=== PATIENT | female | born 1970 | race Caucasian/White ===

== ENCOUNTER → 2016-10-08 | Outpatient (CLI) | payer BC ==
--- NOTE | 2016-10-08 12:54 | REP ---
MRI brain without contrast: History: Mild cognitive impairment. . Comparison study: No comparison brain imaging. Technique: Axial and sagittal imaging planes are utilized for T1 and T2-weighted scans. Sequences include spin-echo, fast spin echo, FLAIR, and diffusion weighted sequences. MRI findings: No bony calvarial lesion is seen. Craniocervical junction and upper cervical cord are normal in appearance. There is no MR evidence of significant paranasal sinus disease. No intraorbital abnormality is seen. The lateral, third, and fourth ventricles are normal in size and position. Alfaro-white differentiation pattern is intact above and below the tentorium. There is no evidence of intracranial hemorrhage. No mass, infarction, extra-axial fluid collection or midline shift is seen. On T2-weighted scans, there are scattered foci of subcortical and periventricular T2 hyperintensity in the frontal lobes, parietal lobes, and occipital lobes bilaterally. These are nonspecific and consistent with atherosclerotic disease, demyelinating lesions, or can be associated with migraine headache. The largest of these is a periventricular white matter lesion in the left frontal lobe where there is some associated low T1 signal intensity. Impression: Multiple periventricular and subcortical T2 hyperintense foci. Nonspecific. Cannot exclude demyelinating disease. Otherwise normal noncontrast brain MRI study. Signed by Bobby Spencer MD 10/08/2016 12:45 P
== END | disposition home or self-care (01) ==
LOC: M RAD 07:30
PROVIDERS: ATTEND Family Medicine
DX: G31.84 Mild cognitive impairment of uncertain or unknown etiology (principal); R90.89 Other abnormal findings on diagnostic imaging of central nervous system

== ENCOUNTER → 2016-10-17 | Outpatient (CLI) | payer BC ==
--- NOTE | 2016-10-17 21:41 | REP ---
Clinical: History of atherosclerotic disease . Technique: Alfaro scale and color Doppler evaluation using linear high frequency transducer Findings: Two-dimensional alfaro scale and color images demonstrate essentially normal arterial lumen with laminar flow and no appreciable narrowing. Small focus of calcified plaque material noted in the bilateral carotid bulbs. Color Doppler interrogation demonstrates normal arterial wave patterns and velocities with no significant spectral broadening. Normal flow direction is appreciated in the bilateral vertebral arteries. RIGHT (cm/s) LEFT (cm/s) ICA peak systolic velocity 86.4 94.3 ICA diastolic velocity 34.5 39.8 ECA peak systolic velocity 104.2 99.6 CCA peak systolic velocity 95.8 108.5 ICA/CCA ratio 0.90 0.87 Impression: No hemodynamically significant areas of narrowing or stenosis appreciated. Based on set standards narrowing falls within the essentially normal range. Signed by Eleazar Jefferson MD 10/17/2016 09:32 P
== END | disposition home or self-care (01) ==
LOC: M RAD 16:22
PROVIDERS: ATTEND Family Medicine
DX: I77.9 Disorder of arteries and arterioles, unspecified (principal)

== ENCOUNTER → 2016-12-06 | Outpatient (CLI) | payer BC ==
--- NOTE | 2016-12-07 09:29 | REPMRS ---
Patient History The patient states she has not had a clinical breast exam in over a year. No known family history of cancer. Reductions of both breasts, 2004. Digital Mammo Screening Bilat: December 06, 2016 - Exam #: [id number] Bilateral CC and MLO view(s) were taken. Technologist: Alysa Delgado, Technologist Prior study comparison: 2009, digital bilateral screening mammo, performed at [facility]. FINDINGS: There are scattered fibroglandular densities. There has been no change in the appearance of the mammogram from the prior studies. There is a mild amount of scattered fibroglandular density which is fairly symmetric. There is no interval development of dominant mass, architectural distortion, or clustered microcalcification suggestive of malignancy. ASSESSMENT: BI-RADS/ACR category 1 mammogram. Negative. Recommendation Routine screening mammogram in 1 year (for women over age 40). This mammogram was interpreted with the aid of an FDA-approved computer-aided dectection system. Electronically Signed By: Eduardo Spencer MD 12/07/16 0906
== END ==
LOC: M RAD 15:45
PROVIDERS: ATTEND Family Medicine
DX: Z12.31 Encounter for screening mammogram for malignant neoplasm of breast (principal)

== ENCOUNTER → 2017-05-02 | Outpatient (REF) | payer BC | LOC: M SFHCPLAZ 10:22 | PROVIDERS: ATTEND Family Medicine | DX: Z53.8 Procedure and treatment not carried out for other reasons (principal); E78.5 Hyperlipidemia, unspecified; G31.84 Mild cognitive impairment of uncertain or unknown etiology; E55.9 Vitamin D deficiency, unspecified ==

== ENCOUNTER → 2017-05-03 | Outpatient (REF) | payer BC ==
[2017-05-03 13:48] LABS: VITAMIN B12 LEVEL 351 PG/ML (247-911)
[2017-05-03 14:17] LABS: CHOLESTEROL LEVEL 128 MG/DL (<200); FREE T4 1.03 NG/DL (0.76-1.46); TRIGLYCERIDES LEVEL 161 MG/DL (<150)
== END ==
LOC: M SFHCPLAZ 10:13
PROVIDERS: ATTEND Family Medicine
DX: E78.5 Hyperlipidemia, unspecified (principal); G31.84 Mild cognitive impairment of uncertain or unknown etiology; E55.9 Vitamin D deficiency, unspecified

== ENCOUNTER → 2018-03-03 | Outpatient (CLI) | payer BC | LOC: M WUC 12:26 | DX: M25.531 Pain in right wrist (principal) | CPT/HCPCS: 73110 ==

== ENCOUNTER → 2018-04-17 | Outpatient (CLI) | payer BC ==
[2018-04-17 15:54] LABS: ALBUMIN 3.7 GM/DL (3.2-5.2); ALBUMIN/GLOBULIN RATIO 1.28 (1.00-1.93); ALKALINE PHOSPHATASE 62 U/L (45-117); ALT/SGPT 25 U/L (12-78); ANION GAP 8 MEQ/L (8-16); AST/SGOT 15 U/L (7-37); BILIRUBIN,TOTAL 0.8 MG/DL (0.2-1.0); BLOOD UREA NITROGEN 11 MG/DL (7-18); CALCIUM LEVEL 8.4 MG/DL (8.5-10.1); CARBON DIOXIDE LEVEL 27 MEQ/L (21-32); CHLORIDE LEVEL 106 MEQ/L (98-107); CREATININE FOR GFR 0.95 MG/DL (0.55-1.30); FREE T4 0.85 NG/DL (0.76-1.46); GLOMERULAR FILTRATION RATE > 60.0 (>58); GLUCOSE, FASTING 80 MG/DL (70-100); POTASSIUM SERUM 4.1 MEQ/L (3.5-5.1); SODIUM LEVEL 141 MEQ/L (136-145); TOTAL PROTEIN 6.6 GM/DL (6.4-8.2)
[2018-04-17 15:57] LABS: VITAMIN B12 LEVEL 339 PG/ML (247-911)
== END ==
LOC: M LAB 14:33
DX: E55.9 Vitamin D deficiency, unspecified (principal); G31.84 Mild cognitive impairment of uncertain or unknown etiology; E03.9 Hypothyroidism, unspecified
CPT/HCPCS: 84443

== ENCOUNTER → 2018-05-16 | Outpatient (CLI) | payer BC | LOC: M LAB 07:11 | DX: G31.84 Mild cognitive impairment of uncertain or unknown etiology (principal) | CPT/HCPCS: 36415 ==

== ENCOUNTER → 2019-04-10 | Outpatient (CLI) | payer BC ==
[2019-04-10 11:59] LABS: BASO % 0.7 % (0.0-1.0); EOS # 0.2 10^3/uL (0.0-0.50); EOS % 3.1 % (0.0-3.0); HEMATOCRIT 41.1 % (36.0-47.0); HEMOGLOBIN 13.4 g/dl (12.0-15.5); LYMPH # 2.1 10^3/uL (1.5-4.5); LYMPH % 33.6 % (24.0-44.0); MEAN CORPUSCULAR HEMOGLOBIN 29.1 pg (27.0-33.0); MEAN CORPUSCULAR HGB CONC 32.6 g/dl (32.0-36.5); MEAN CORPUSCULAR VOLUME 89.3 fl (80.0-96.0); MONO # 0.6 10^3/uL (0.0-0.8); MONO % 9.4 % (0.0-5.0); NEUTROPHILS # 3.3 10^3/uL (1.8-7.7); NEUTROPHILS % 52.9 % (36.0-66.0); PLATELET COUNT, AUTOMATED 192 10^3/uL (150-450); WHITE BLOOD COUNT 6.1 10^3/uL (4.0-10.0)
[2019-04-10 12:18] LABS: HEMATOCRIT 41.1 % (36.0-47.0)
[2019-04-10 12:38] LABS: ALBUMIN 3.7 GM/DL (3.2-5.2); ALT/SGPT 18 U/L (12-78); BILIRUBIN,TOTAL 0.8 MG/DL (0.2-1.0); BLOOD UREA NITROGEN 12 MG/DL (7-18); CALCIUM LEVEL 8.2 MG/DL (8.5-10.1); CARBON DIOXIDE LEVEL 26 MEQ/L (21-32); CHLORIDE LEVEL 107 MEQ/L (98-107); CHOLESTEROL LEVEL 183 MG/DL (<200); CHOLESTEROL RISK RATIO 3.267 (<5); CREATININE FOR GFR 0.98 MG/DL (0.55-1.30); FREE T4 0.73 NG/DL (0.76-1.46); GLOMERULAR FILTRATION RATE > 60.0 (>58); GLUCOSE, FASTING 85 MG/DL (70-100); HDL CHOLESTEROL 56 MG/DL (>40); LDL CHOLESTEROL 104 MG/DL (<100); NON-HDL-C 127 MG/DL; POTASSIUM SERUM 4.2 MEQ/L (3.5-5.1); SODIUM LEVEL 139 MEQ/L (136-145); TOTAL PROTEIN 6.7 GM/DL (6.4-8.2); TRIGLYCERIDES LEVEL 114 MG/DL (<150)
[2019-04-10 12:47] LABS: VITAMIN B12 LEVEL 463 PG/ML (247-911)
== END ==
LOC: M LAB 10:59
PROVIDERS: ATTEND Family Medicine
DX: E78.5 Hyperlipidemia, unspecified (principal); K21.9 Gastro-esophageal reflux disease without esophagitis; E53.8 Deficiency of other specified B group vitamins; I10 Essential (primary) hypertension

== ENCOUNTER → 2019-04-10 | Outpatient (CLI) | payer BC | LOC: M LAB 11:05 | PROVIDERS: ATTEND Physician Assistant Medical | DX: E03.9 Hypothyroidism, unspecified (principal); E53.8 Deficiency of other specified B group vitamins ==

== ENCOUNTER → 2020-03-19 | Outpatient (REF) | payer BC ==
[2020-03-19 16:31] LABS: BASO # 0.1 10^3/uL (0.0-0.2); BASO % 0.7 % (0.0-1.0); EOS # 0.2 10^3/uL (0.0-0.5); EOS % 2.7 % (0.0-3.0); HEMATOCRIT 42.5 % (36.0-47.0); HEMOGLOBIN 13.5 g/dl (12.0-15.5); LYMPH # 3.1 10^3/uL (1.5-5.0); LYMPH % 43.1 % (24.0-44.0); MEAN CORPUSCULAR HEMOGLOBIN 27.6 pg (27.0-33.0); MEAN CORPUSCULAR HGB CONC 31.8 g/dl (32.0-36.5); MEAN CORPUSCULAR VOLUME 86.9 fl (80.0-96.0); MONO # 0.5 10^3/uL (0.0-0.8); MONO % 7.3 % (0.0-5.0); NEUTROPHILS # 3.3 10^3/uL (1.5-8.5); NEUTROPHILS % 46.1 % (36.0-66.0); PLATELET COUNT, AUTOMATED 248 10^3/uL (150-450); RED BLOOD COUNT 4.89 10^6/uL (4.00-5.40); WHITE BLOOD COUNT 7.1 10^3/uL (4.0-10.0)
[2020-03-19 17:06] LABS: ALBUMIN 3.8 GM/DL (3.2-5.2); ALT/SGPT 17 U/L (12-78); BILIRUBIN,TOTAL 0.7 MG/DL (0.2-1.0); BLOOD UREA NITROGEN 9 MG/DL (7-18); CALCIUM LEVEL 8.7 MG/DL (8.5-10.1); CARBON DIOXIDE LEVEL 28 MEQ/L (21-32); CHLORIDE LEVEL 105 MEQ/L (98-107); CREATININE FOR GFR 0.98 MG/DL (0.55-1.30); FREE T4 0.98 NG/DL (0.76-1.46); GLOMERULAR FILTRATION RATE > 60.0 (>51); GLUCOSE, FASTING 76 MG/DL (70-100); SODIUM LEVEL 139 MEQ/L (136-145); TOTAL PROTEIN 6.6 GM/DL (6.4-8.2)
[2020-03-20 19:11] LABS: PTH INTACT 19.8 PG/ML (18.5-88.0); VITAMIN B12 LEVEL 269 PG/ML (247-911)
[2020-03-20 19:26] LABS: TOTAL 25(OH) VITAMIN D 29.4 NG/ML (30.0-100.0)
== END ==
LOC: M SFHCPLAZ 12:52
PROVIDERS: ATTEND Physician Assistant Medical
DX: K21.9 Gastro-esophageal reflux disease without esophagitis (principal); E03.9 Hypothyroidism, unspecified; E78.5 Hyperlipidemia, unspecified; E55.9 Vitamin D deficiency, unspecified; E53.8 Deficiency of other specified B group vitamins

== ENCOUNTER 2021-03-07 01:21 | Emergency (ER) | payer BC ==
[~2021-03-07] VITALS: Ht 170.2 cm; Wt 77.5 kg
[2021-03-07 01:21] VITALS: BP 112/71
[2021-03-07] MEDS ORDERED: ROSU20TA5 PO (01:32)
[2021-03-07] MEDS ORDERED: ONDA-83 PO (01:32)
[2021-03-07] MEDS ORDERED: BUPR150T5 PO (01:32)
[2021-03-07] MEDS ORDERED: LISI10TA22 PO (01:32)
[2021-03-07] MEDS ORDERED: NABU-71 PO (01:32)
[2021-03-07] MEDS ORDERED: CEPH500C PO (02:09)
[2021-03-07] MEDS ORDERED: CEPHALEXIN 500 MG CAP PO ONE (02:10)
== END 2021-03-07 02:29 | disposition home or self-care (01) ==
LOC: M ED 01:21
DX: L03.116 Cellulitis of left lower limb (principal); E78.5 Hyperlipidemia, unspecified; Z98.86 Personal history of breast implant removal

== ENCOUNTER → 2021-03-19 | Outpatient (REF) | payer BC ==
[~2021-03-19] MED LIST: BUPR150T5 PO; CEPH500C PO; LISI10TA22 PO; NABU-71 PO; ONDA-83 PO; ROSU20TA5 PO
[2021-03-19 18:55] LABS: BASO % 0.6 % (0.0-1.0); EOS # 0.1 10^3/uL (0.0-0.5); HEMATOCRIT 41.3 % (36.0-47.0); HEMATOCRIT 41.6 % (36.0-47.0); HEMOGLOBIN 13.3 g/dl (12.0-15.5); MEAN CORPUSCULAR HEMOGLOBIN 28.5 pg (27.0-33.0); MEAN CORPUSCULAR VOLUME 89.1 fl (80.0-96.0); MONO # 0.4 10^3/uL (0.0-0.8); MONO % 6.6 % (2.0-8.0); NEUTROPHILS # 3.9 10^3/uL (1.5-8.5); NEUTROPHILS % 59.5 % (36.0-66.0); PLATELET COUNT, AUTOMATED 232 10^3/uL (150-450); RED BLOOD COUNT 4.67 10^6/uL (4.00-5.40); WHITE BLOOD COUNT 6.5 10^3/uL (4.0-10.0)
[2021-03-19 19:07] LABS: ALBUMIN 3.9 GM/DL (3.2-5.2); ALT/SGPT 24 U/L (12-78); BILIRUBIN,TOTAL 0.7 MG/DL (0.2-1.0); BLOOD UREA NITROGEN 15 MG/DL (7-18); CALCIUM LEVEL 8.7 MG/DL (8.5-10.1); CARBON DIOXIDE LEVEL 29 MEQ/L (21-32); CHLORIDE LEVEL 107 MEQ/L (98-107); CHOLESTEROL LEVEL 113 MG/DL (<200); CHOLESTEROL RISK RATIO 2.354 (<5); CPK CREATINE PHOSPHOKINASE 136 U/L (26-192); CREATININE FOR GFR 0.97 MG/DL (0.55-1.30); FREE T4 0.79 NG/DL (0.76-1.46); GLOMERULAR FILTRATION RATE > 60.0 (>51); GLUCOSE, FASTING 76 MG/DL (70-100); HDL CHOLESTEROL 48 MG/DL (>40); LDL CHOLESTEROL 38 MG/DL (<100); NON-HDL-C 65 MG/DL; POTASSIUM SERUM 4.2 MEQ/L (3.5-5.1); SODIUM LEVEL 140 MEQ/L (136-145); TOTAL PROTEIN 6.6 GM/DL (6.4-8.2); TRIGLYCERIDES LEVEL 133 MG/DL (<150)
[2021-03-19 19:10] LABS: VITAMIN B12 LEVEL 584 PG/ML (247-911)
== END ==
LOC: M SFHCPLAZ 14:37
PROVIDERS: ATTEND Family Medicine
DX: E53.8 Deficiency of other specified B group vitamins (principal); E03.9 Hypothyroidism, unspecified; E78.5 Hyperlipidemia, unspecified

== ENCOUNTER → 2021-04-16 | Outpatient (CLI) | payer BC ==
--- NOTE | 2021-04-16 13:51 | REPVR ---
PROCEDURE INFORMATION: Exam: CT Maxillofacial Without Contrast, Sinus Exam date and time: 04/16/2021 1:29 PM Age: 50 years old Clinical indication: Sinusitis; Chronic; Additional info: Chronic sinusitis TECHNIQUE: Imaging protocol: CT Maxillofacial without contrast. Focus on the sinuses. Radiation optimization: All CT scans at this facility use at least one of these dose optimization techniques: automated exposure control; mA and/or kV adjustment per patient size (includes targeted exams where dose is matched to clinical indication); or iterative reconstruction. COMPARISON: MRI-Brain without Contrast 10/08/2016 8:17 AM FINDINGS: There is no significant nasal septal deviation. Small bilateral kris bullosa. Turbinate morphology is otherwise unremarkable. No significant phlegm a nay changes within the nasal cavities. Anterior and posterior ethmoid air cells are clear. Frontal sinuses and frontal recesses are clear. Sphenoid sinuses are clear although somewhat hypoplastic. Ostiomeatal units are well ventilated bilaterally. Visualized mastoid air cells are grossly clear. IMPRESSION: No significant paranasal sinus inflammatory changes. No significant mucosal thickening or air-fluid levels within the paranasal sinuses. Electronically signed by: Woodrow Uriarte On 04/16/2021 13:51:04 PM
== END ==
LOC: M RAD 13:09
PROVIDERS: ATTEND Otolaryngology
DX: J32.0 Chronic maxillary sinusitis (principal)

== ENCOUNTER 2022-06-27 03:25 | Emergency (ER) | payer BC ==
[~2022-06-27] VITALS: Ht 170.2 cm; Wt 75.2 kg
[~2022-06-27 03:25] MED LIST changes: +BUPR-71 PO; -BUPR150T5 PO
[2022-06-27] MEDS ORDERED: ASPI81TA26 PO (03:35)
[2022-06-27] MEDS ORDERED: ONDANSETRON 4MG 2ML VIAL IV ONE (04:25)
[2022-06-27] MEDS ORDERED: MORPHINE 4 MG/ML 1ML VIAL/SYRINGE IV PRN (04:25)
[2022-06-27] MEDS ORDERED: AMPICILLIN SOD/SULBACTAM SOD 3 GM in D5W MINI-BAG PLUS 100 ML IV ONE (04:25)
[2022-06-27] MEDS ORDERED: BENZOCAINE 20% GEL 9GM TUBE (ANBESOL MAX STRENGTH) TOP ONE (04:30)
[2022-06-27] MEDS ORDERED: KETOROLAC 30 MG/ML 1ML VIAL IV ONE (05:00)
[2022-06-27] MEDS ORDERED: METOCLOPRAMIDE INJ 10MG/2ML VIAL (J2765 PER 1) IV ONE (06:00)
[2022-06-27] MEDS ORDERED: OXYCODONE/APAP 5MG/325MG(HOME DOSE PACK) PO ONE ×2 (06:15→07:00)
[2022-06-27 06:24] VITALS: BP 143/100
== END 2022-06-27 06:58 | disposition home or self-care (01) ==
LOC: M ED 03:25
DX: K04.7 Periapical abscess without sinus (principal); I10 Essential (primary) hypertension; E78.5 Hyperlipidemia, unspecified; Z79.82 Long term (current) use of aspirin; Z79.899 Other long term (current) drug therapy
CPT/HCPCS: 96365; 96375; 99283; J0295; J1885; J2270; J2405; J2765

== ENCOUNTER → 2022-07-18 | Outpatient (REF) ==
[~2022-07-18] MED LIST changes: +ASPI81TA26 PO
== END ==
LOC: M LABSMTC 09:52
PROVIDERS: ATTEND Family Medicine
DX: Z11.52 Encounter for screening for COVID-19 (principal)

== ENCOUNTER → 2022-11-09 | Outpatient (CLI) | payer BC ==
[2022-11-09 15:52] LABS: CPK CREATINE PHOSPHOKINASE 110 U/L (34-145)
[2022-11-09 15:53] LABS: ALBUMIN 4.4 G/DL (3.2-5.2); ALKALINE PHOSPHATASE 74 U/L (46-116); ALT/SGPT 17 U/L (7.0-40); AST/SGOT 20 U/L (<34); BILIRUBIN,TOTAL 1.1 MG/DL (0.3-1.2); BLOOD UREA NITROGEN 17 MG/DL (9-23); CALCIUM LEVEL 9.5 MG/DL (8.5-10.1); CARBON DIOXIDE LEVEL 32 MMOL/L (20-31); CHLORIDE LEVEL 105 MMOL/L (98-107); CHOLESTEROL LEVEL 154 MG/DL (<200); CHOLESTEROL RISK RATIO 2.92 (<5); CREATININE FOR GFR 1.13 MG/DL (0.55-1.30); GLOMERULAR FILTRATION RATE 53.6 (>51); GLUCOSE, FASTING 80 MG/DL (60-100); HDL CHOLESTEROL 52.7 MG/DL (>40); LDL CHOLESTEROL 84.1 MG/DL (<100); NON-HDL-C 101 MG/DL; POTASSIUM SERUM 4.7 MMOL/L (3.5-5.1); SODIUM LEVEL 142 MMOL/L (136-145); TOTAL PROTEIN 6.9 G/DL (5.7-8.2); TRIGLYCERIDES LEVEL 86 MG/DL (<150)
[2022-11-09 15:54] LABS: C REACTIVE PROTEIN QUANTITATIV < 0.40 MG/DL (<1.0)
[2022-11-09 15:55] LABS: PTH INTACT 28.1 PG/ML (18.5-88.0)
[2022-11-09 15:56] LABS: FERRITIN 41.8 NG/ML (7.3-270.7); FREE T4 0.96 NG/DL (0.89-1.76)
[2022-11-09 15:57] LABS: TOTAL 25(OH) VITAMIN D 24.1 NG/ML (20.0-100.0)
[2022-11-11 07:09] LABS: APOLIPOPROTEIN B/A-1 RATIO 0.5 ratio (0.0-0.6)
== END ==
LOC: M PLALAB 12:34
PROVIDERS: ATTEND Family Medicine
DX: E78.5 Hyperlipidemia, unspecified (principal); E53.8 Deficiency of other specified B group vitamins; E55.9 Vitamin D deficiency, unspecified; I10 Essential (primary) hypertension; E03.9 Hypothyroidism, unspecified

== ENCOUNTER → 2022-11-13 | Outpatient (REF) ==
[2022-11-13 14:54] LABS: RSV AMPLIFICATION NEGATIVE (NEGATIVE)
== END ==
LOC: M LABSMTC 09:36
PROVIDERS: ATTEND Family Medicine
DX: Z00.00 Encounter for general adult medical examination without abnormal findings (principal)

== ENCOUNTER 2023-07-31 07:18 | Emergency (ER) | payer BC ==
[~2023-07-31] VITALS: Ht 167.6 cm; Wt 80.2 kg
[~2023-07-31 07:18] MED LIST changes: -ROSU20TA5 PO; +ROSU20TA61 PO
[2023-07-31] MEDS ORDERED: TAMS1CAP17 (07:26)
[2023-07-31] MEDS ORDERED: IBUP80TA (07:26)
[2023-07-31] MEDS ORDERED: NS 1,000 ML IV ONE (08:15)
[2023-07-31] MEDS ORDERED: ONDANSETRON 4MG 2ML VIAL IV ONE (08:15)
[2023-07-31] MEDS ORDERED: KETOROLAC 30 MG/ML 1ML VIAL IV ONE (08:15)
[2023-07-31 08:23] LABS: BASO % 0.6 % (0.0-1.0); EOS # 0.1 10^3/uL (0.0-0.5); EOS % 2.1 % (0.0-3.0); HEMATOCRIT 39.3 % (36.0-47.0); LYMPH # 2.9 10^3/uL (1.5-5.0); LYMPH % 42.8 % (24.0-44.0); MEAN CORPUSCULAR HEMOGLOBIN 29.1 pg (27.0-33.0); MEAN CORPUSCULAR HGB CONC 33.1 g/dl (32.0-36.5); MEAN CORPUSCULAR VOLUME 87.9 fl (80.0-96.0); MONO # 0.5 10^3/uL (0.0-0.8); MONO % 7.4 % (2.0-8.0); NEUTROPHILS # 3.2 10^3/uL (1.5-8.5); PLATELET COUNT, AUTOMATED 204 10^3/uL (150-450); RED BLOOD COUNT 4.47 10^6/uL (4.00-5.40); WHITE BLOOD COUNT 6.8 10^3/uL (4.0-10.0)
[2023-07-31 08:47] LABS: BILIRUBIN,DIRECT 0.2 MG/DL (<0.4); BILIRUBIN,TOTAL 0.6 MG/DL (0.3-1.2); CALCIUM LEVEL 9.2 MG/DL (8.5-10.1); CREATININE FOR GFR 1.16 MG/DL (0.55-1.30); POTASSIUM SERUM 4.1 MMOL/L (3.5-5.1); TOTAL PROTEIN 6.2 G/DL (5.7-8.2)
[2023-07-31 08:48] LABS: THYROID STIMULATING HORMONE 9.377 uIU/ML (0.55-4.78)
[2023-07-31 08:49] LABS: FREE T3 3.2 PG/ML (2.3-4.2)
[2023-07-31] MEDS ORDERED: ACETAMINOPHEN *IV* 1,000 MG in IV 1 EA IV ONE (09:10)
[2023-07-31] MEDS ORDERED: methocarbamoL 500 MG TAB PO ONE (11:10)
[2023-07-31 11:21] VITALS: BP 152/93; TEMP 97.2; O2SAT 97
[2023-07-31] MEDS ORDERED: METH-1164 PO (11:35)
== END 2023-07-31 11:57 | disposition home or self-care (01) ==
LOC: M ED 09:16
DX: R10.9 Unspecified abdominal pain (principal); I10 Essential (primary) hypertension; F32.A Depression, unspecified; Z79.82 Long term (current) use of aspirin; Z79.899 Other long term (current) drug therapy
CPT/HCPCS: 74176; 76830; 76856; 80047; 80048; 80076; 81001; 83690; 84443; 84481; 84702; 85025; 93976; 96361; 96365; 96375; 99283; J0131; J1885; J2405

== ENCOUNTER → 2023-09-21 | Outpatient (CLI) | payer BC ==
[~2023-09-21] MED LIST changes: +IBUP80TA; +METH-1164 PO; +TAMS1CAP17
[2023-09-21 11:58] LABS: ALBUMIN 4.1 G/DL (3.2-5.2); BILIRUBIN,TOTAL 0.9 MG/DL (0.3-1.2); CALCIUM LEVEL 9.9 MG/DL (8.5-10.1); CREATININE FOR GFR 1.14 MG/DL (0.55-1.30); GLOMERULAR FILTRATION RATE 53.1 (>51); TOTAL PROTEIN 6.5 G/DL (5.7-8.2)
[2023-09-21 11:59] LABS: FERRITIN 46.6 NG/ML (7.3-270.7)
[2023-09-21 12:00] LABS: FREE T4 0.91 NG/DL (0.89-1.76); THYROID STIMULATING HORMONE 5.404 uIU/ML (0.55-4.78)
== END ==
LOC: M LAB 11:06
PROVIDERS: ATTEND Family Medicine
DX: I10 Essential (primary) hypertension (principal); E03.9 Hypothyroidism, unspecified; E53.8 Deficiency of other specified B group vitamins

== ENCOUNTER → 2023-11-17 | Outpatient (CLI) | payer BC ==
[2023-11-17 16:35] LABS: FREE T4 0.91 NG/DL (0.89-1.76)
[2023-11-17 16:36] LABS: ALBUMIN 4.2 G/DL (3.2-5.2); CALCIUM LEVEL 9.2 MG/DL (8.5-10.1); CHOLESTEROL RISK RATIO 3.3 (<5); CREATININE FOR GFR 1.05 MG/DL (0.55-1.30); GLOMERULAR FILTRATION RATE 58.1 (>51); HDL CHOLESTEROL 52.1 MG/DL (>40); LDL CHOLESTEROL 95.9 MG/DL (<100); NON-HDL-C 119.9 MG/DL; PHOSPHORUS LEVEL 3.3 MG/DL (2.5-4.9); POTASSIUM SERUM 4.7 MMOL/L (3.5-5.1); THYROID STIMULATING HORMONE 3.263 uIU/ML (0.55-4.78); TOTAL 25(OH) VITAMIN D 25.6 NG/ML (20.0-100.0)
[2023-11-18 16:47] LABS: PTH INTACT 28.6 PG/ML (18.5-88.0)
== END ==
LOC: M PLALAB 13:50
PROVIDERS: ATTEND Family Medicine
DX: E55.9 Vitamin D deficiency, unspecified (principal); E78.5 Hyperlipidemia, unspecified

== ENCOUNTER → 2023-11-17 | Outpatient (CLI) | payer BC | LOC: M PLARAD 12:53 | PROVIDERS: ATTEND Family Medicine | DX: G31.84 Mild cognitive impairment of uncertain or unknown etiology (principal) ==

== ENCOUNTER → 2023-12-28 | Outpatient (REF) | LOC: M EMP 07:05 | PROVIDERS: ATTEND Family Medicine | DX: Z11.52 Encounter for screening for COVID-19 (principal) ==

== ENCOUNTER → 2024-01-23 | Outpatient (CLI) | payer BC | LOC: M WHC 13:29 | PROVIDERS: ATTEND Family Medicine | DX: Z12.31 Encounter for screening mammogram for malignant neoplasm of breast (principal) ==

== ENCOUNTER → 2024-10-31 | Outpatient (REF) ==
[~2024-10-31] MED LIST changes: -ROSU20TA61 PO; +ROSU20TA86 PO
== END ==
LOC: M EMP 13:21
PROVIDERS: ATTEND Family Medicine
DX: Z01.89 Encounter for other specified special examinations (principal)

== ENCOUNTER → 2024-11-14 | Outpatient (CLI) | payer BC ==
[2024-11-14 14:48] LABS: HEMATOCRIT 43.9 % (36.0-47.0)
[2024-11-14 14:49] LABS: BASO % 0.9 % (0.0-1.0); EOS # 0.1 10^3/uL (0.0-0.5); EOS % 2.6 % (0.0-3.0); HEMOGLOBIN 14.3 g/dl (12.0-15.5); LYMPH # 1.9 10^3/uL (1.5-5.0); LYMPH % 42.1 % (24.0-44.0); MEAN CORPUSCULAR HEMOGLOBIN 29.1 pg (27.0-33.0); MEAN CORPUSCULAR HGB CONC 32.5 g/dl (32.0-36.5); MEAN CORPUSCULAR VOLUME 89.4 fl (80.0-96.0); MONO # 0.3 10^3/uL (0.0-0.8); MONO % 7.2 % (2.0-8.0); NEUTROPHILS # 2.1 10^3/uL (1.5-8.5); PLATELET COUNT, AUTOMATED 218 10^3/uL (150-450); RED BLOOD COUNT 4.92 10^6/uL (4.00-5.40); WHITE BLOOD COUNT 4.6 10^3/uL (4.0-10.0)
[2024-11-14 15:12] LABS: ALBUMIN 4.6 G/DL (3.2-5.2); ALKALINE PHOSPHATASE 80 U/L (35-104); ALT/SGPT 24 U/L (7.0-40); AST/SGOT 18 U/L (<34); BILIRUBIN,TOTAL 1.1 MG/DL (0.3-1.2); BLOOD UREA NITROGEN 15 MG/DL (9-23); CALCIUM LEVEL 9.1 MG/DL (8.5-10.1); CARBON DIOXIDE LEVEL 29 MMOL/L (20-31); CHLORIDE LEVEL 104 MMOL/L (98-107); CHOLESTEROL LEVEL 152 MG/DL (<200); CHOLESTEROL RISK RATIO 2.45 (<5); CREATININE FOR GFR 1.03 MG/DL (0.55-1.30); GLOMERULAR FILTRATION RATE 59.2 (>51); GLUCOSE, FASTING 78 MG/DL (60-100); LDL CHOLESTEROL 68.2 MG/DL (<100); SODIUM LEVEL 142 MMOL/L (136-145); TOTAL PROTEIN 7.8 G/DL (5.7-8.2); TRIGLYCERIDES LEVEL 109 MG/DL (<150)
[2024-11-14 15:13] LABS: FREE T4 1.17 NG/DL (0.89-1.76); THYROID STIMULATING HORMONE 4.106 uIU/ML (0.55-4.78)
[2024-11-14 15:31] LABS: C REACTIVE PROTEIN QUANTITATIV < 0.50 MG/DL (<1.0); CPK CREATINE PHOSPHOKINASE 184 U/L (34-145)
== END ==
LOC: M LAB 13:21
PROVIDERS: ATTEND Family Medicine
DX: E78.5 Hyperlipidemia, unspecified (principal)

== ENCOUNTER → 2025-07-03 | Outpatient (CLI) | payer BC | LOC: M WHC 13:32 | PROVIDERS: ATTEND Family Medicine | DX: Z12.31 Encounter for screening mammogram for malignant neoplasm of breast (principal); M81.0 Age-related osteoporosis without current pathological fracture ==

== ENCOUNTER 2025-09-04 01:14 | Emergency (ER) | payer BC, OTHER ==
[~2025-09-04] VITALS: Ht 167.6 cm; Wt 75.0 kg
[~2025-09-04 01:14] MED LIST changes: -TAMS1CAP17; +TAMS1CAP17 PO
[2025-09-04 01:20] VITALS: TEMP 97.2
[2025-09-04] MEDS: ONDANSETRON 4MG/2ML VIAL IV ONE ×2 (01:32→05:41)
[2025-09-04] MEDS ORDERED: HYDROMORPHONE HCL 0.5 MG/0.5 ML SYRINGE As Ordered ONE (01:35)
[2025-09-04] MEDS: HYDROMORPHONE HCL 0.5 MG/0.5 ML SYRINGE IV PRN (01:40)
[2025-09-04] MEDS ORDERED: KETAMINE HCL 200 MG/20 ML VIAL IV ONE (02:25)
[2025-09-04] MEDS ORDERED: LIDOCAINE W/EPINEPHrine 1% 20 ML VIAL As Ordered ONE (02:51)
[2025-09-04] MEDS ORDERED: AUGM500T34 PO (02:51)
[2025-09-04] MEDS ORDERED: PERC5TAB12 PO (02:51)
[2025-09-04] MEDS ORDERED: KETAMINE HCL 200 MG/20 ML VIAL As Ordered ONE (02:51)
[2025-09-04] MEDS ORDERED: LIDOCAINE 1% MDV 20 ML VIAL As Ordered ONE (02:52)
[2025-09-04] MEDS: NS (Normal Saline) 0.9% 1,000 ML IV SCH (03:12)
[2025-09-04] MEDS: LIDOCAINE 1% MDV 20 ML VIAL SC ONE (03:20)
[2025-09-04] MEDS: AMPICILLIN SOD/SULBACTAM SOD 3 GM in DEXTROSE 5% (D5W) MINI-BAG PLU 100 ML IV ONE (04:03)
[2025-09-04 04:45] VITALS: O2SAT 99
[2025-09-04] MEDS ORDERED: ONDANSETRON 4MG/2ML VIAL As Ordered ONE (05:34)
[2025-09-04] MEDS: OXYCODONE/APAP 5MG/325MG(HOME DOSE PACK) PO ONE (05:41)
[2025-09-04] MEDS: TETANUS/DIPHTH/ACEL. PERTUSSIS 0.5 ML SYR IM ONE (05:42)
[2025-09-04 06:00] VITALS: BP 169/95
[2025-09-05] MEDS ORDERED: LEVO25TA5 PO (14:04)
[2025-09-05] MEDS ORDERED: VITA200016 PO (14:04)
[2025-09-05] MEDS ORDERED: CYAN500T14 PO (14:04)
== END 2025-09-04 06:07 | disposition home or self-care (01) ==
LOC: M ED 01:14
DX: S62.521B Displaced fracture of distal phalanx of right thumb, initial encounter for open fracture (principal); W54.0XXA Bitten by dog, initial encounter; Y92.009 Unspecified place in unspecified non-institutional (private) residence as the place of occurrence of the external cause; Y93.89 Activity, other specified; Y99.9 Unspecified external cause status; I48.0 Paroxysmal atrial fibrillation; G43.909 Migraine, unspecified, not intractable, without status migrainosus; E78.5 Hyperlipidemia, unspecified; E03.9 Hypothyroidism, unspecified; E55.9 Vitamin D deficiency, unspecified; Z23 Encounter for immunization
CPT/HCPCS: 12002; 73140; 73200; 90471; 90715; 93041; 94760; 96374; 96375; 99152; 99285; J0295; J0665; J1171; J2405

== ENCOUNTER 2025-09-08 11:33 | Day surgery (SDC) | payer BC ==
[~2025-09-08] VITALS: Ht 167.6 cm; Wt 76.7 kg
[~2025-09-08 11:33] MED LIST changes: +AUGM500T34 PO; +CYAN500T14 PO; +KETOROLAC 30 MG/ML 1 ML VIAL As Ordered ONE; +LEVO25TA5 PO; +LIDOCAINE 2% 100 MG/5 ML SDV (FOR ANES.) As Ordered ONE; +ONDANSETRON 4MG/2ML VIAL As Ordered ONE; +PERC5TAB12 PO; +VITA200016 PO; +dexAMETHasone 4 MG/ML 1 ML VIAL As Ordered ONE
[2025-09-08] MEDS ORDERED: LR 1,000 ML IV SCH ×2 (12:15→14:35)
[2025-09-08] MEDS ORDERED: SCOPOLAMINE 1MG TRANSDERMAL PATCH TOP ONE (12:30)
[2025-09-08] MEDS ORDERED: MIDAZOLAM INJ 2 MG/2 ML VIAL As Ordered ONE (12:49)
[2025-09-08] MEDS: ceFAZolin SOD 2 GM IV ONCE IV ONE (13:10)
[2025-09-08] MEDS ORDERED: ACETAMINOPHEN 1000MG/100ML IV BAG As Ordered ONE (13:17)
[2025-09-08] MEDS ORDERED: HYDROMORPHONE HCL 0.5 MG/0.5 ML SYRINGE IV PRN (14:35)
[2025-09-08] MEDS ORDERED: ONDANSETRON 4MG/2ML VIAL IV PRN (14:35)
[2025-09-08] MEDS ORDERED: PERC5TAB12 PO (14:47)
[2025-09-08 15:53] VITALS: BP 131/70; TEMP 97.7; O2SAT 98
== END 2025-09-08 15:56 | disposition home or self-care (01) ==
LOC: M SDC 11:33
PROVIDERS: ATTEND Orthopaedic Surgery Hand Surgery
DX: S61.051A Open bite of right thumb without damage to nail, initial encounter (principal); S62.521B Displaced fracture of distal phalanx of right thumb, initial encounter for open fracture; S62.511B Displaced fracture of proximal phalanx of right thumb, initial encounter for open fracture; M79.9 Soft tissue disorder, unspecified; W54.0XXA Bitten by dog, initial encounter; Y92.099 Unspecified place in other non-institutional residence as the place of occurrence of the external cause; Y93.K9 Activity, other involving animal care; Y99.8 Other external cause status
CPT/HCPCS: 11012; 26765; 76000; C1713; J0131; J0665; J0688; J1100; J1885; J2250; J2405; J3010

== ENCOUNTER 2025-09-14 16:12 | Observation (INO) | payer BC ==
[~2025-09-14] VITALS: Ht 170.2 cm; Wt 71.6 kg
[~2025-09-14 16:12] MED LIST changes: -KETOROLAC 30 MG/ML 1 ML VIAL As Ordered ONE; -LIDOCAINE 2% 100 MG/5 ML SDV (FOR ANES.) As Ordered ONE; -ONDANSETRON 4MG/2ML VIAL As Ordered ONE; -dexAMETHasone 4 MG/ML 1 ML VIAL As Ordered ONE
[2025-09-14 17:03] LABS: VENOUS BASE EXCESS 1.3 (-2.0-2.0); VENOUS HCO3 24.1 MMOL/L (23.0-27.0); VENOUS O2 SATURATION 70.8 % (60.0-80.0); VENOUS PARTIAL PRESSURE CO2 33.0 mmHg (38.0-50.0); VENOUS PARTIAL PRESSURE O2 31.9 mmHg (30.0-50.0); VENOUS PH 7.481 UNITS (7.330-7.430); VENOUS STANDARD HCO3 24.9 MMOL/L; VENOUS TOTAL CO2 25.1 MMOL/L (24.0-28.0)
[2025-09-14 17:05] LABS: BASO # 0.0 10^3/uL (0.0-0.2); BASO % 0.6 % (0.0-1.0); EOS # 0.1 10^3/uL (0.0-0.5); EOS % 1.5 % (0.0-3.0); LYMPH # 1.9 10^3/uL (1.5-5.0); LYMPH % 29.1 % (24.0-44.0); MONO # 0.4 10^3/uL (0.0-0.8); MONO % 6.3 % (2.0-8.0); NEUTROPHILS # 4.0 10^3/uL (1.5-8.5); NEUTROPHILS % 62.2 % (36.0-66.0); PLATELET COUNT, AUTOMATED 298 10^3/uL (150-450)
[2025-09-14 17:39] LABS: ETHYL ALCOHOL (ETHANOL) 0.005 % (0.000-0.010)
[2025-09-14 17:40] LABS: C REACTIVE PROTEIN QUANTITATIV < 0.50 MG/DL (<1.0)
[2025-09-14 17:41] LABS: ALT/SGPT 19 U/L (7.0-40); AST/SGOT 23 U/L (<34); CALCIUM LEVEL 9.1 MG/DL (8.5-10.1); CARBON DIOXIDE LEVEL 26 MMOL/L (20-31); CHLORIDE LEVEL 106 MMOL/L (98-107); CREATININE FOR GFR 1.36 MG/DL (0.55-1.30); GLOMERULAR FILTRATION RATE 46.0 (>51); POTASSIUM SERUM 4.5 MMOL/L (3.5-5.1); SALICYLATE LEVEL < 3.0 MG/DL (<30); SODIUM LEVEL 142 MMOL/L (136-145)
[2025-09-14] MEDS: NS (Normal Saline) 0.9% 1,000 ML IV ONE (18:05)
[2025-09-14] MEDS: LORazepam 1 MG TAB PO ONE (18:23)
[2025-09-14] MEDS ORDERED: ALEV220T22 PO (18:29)
[2025-09-14] MEDS ORDERED: HOME MED LIST COMPLETE! XX SCH (18:30)
[2025-09-14] MEDS: ACETAMINOPHEN *IV* 1,000 MG in IV 1 EA IV ONE (18:42)
[2025-09-14] MEDS: NS (Normal Saline) 0.9% 1,000 ML IV SCH (19:44)
[2025-09-14 21:08] VITALS: BP 150/92; TEMP 98.1; O2SAT 99
[2025-09-15] MEDS: traZODone 50 MG TAB PO PRN (00:09)
[2025-09-15 00:55] LABS: AMPHETAMINES LEVEL URINE NEGATIVE (NEGATIVE); BARBITURATES URINE NEGATIVE (NEGATIVE); BENZODIAZEPINES URINE NEGATIVE (NEGATIVE); COCAINE METABOLITE URINE NEGATIVE (NEGATIVE); METHADONE URINE NEGATIVE (NEGATIVE); OPIATES URINE NEGATIVE (NEGATIVE); PHENCYCLIDINE URINE NEGATIVE (NEGATIVE)
[2025-09-15 01:02] LABS: CANNABINOIDS URINE POSITIVE (NEGATIVE)
[2025-09-15] MEDS: ACETAMINOPHEN 325 MG TAB PO PRN (04:10)
[2025-09-15] MEDS: ONDANSETRON 4MG/2ML VIAL IV PRN (04:10)
[2025-09-15] MEDS: MOM 30 ML SUSPENSION UDC PO PRN (04:18)
[2025-09-15 04:57] VITALS: BP 164/90; TEMP 98.2; O2SAT 99
[2025-09-15] MEDS: BISACODYL 5 MG TAB PO STA (05:00)
[2025-09-15] MEDS: LEVOTHYROXINE 25 MCG TABLET (0.025MG) PO SCH (05:00)
[2025-09-15 06:43] LABS: ALT/SGPT 17.0 U/L (7.0-40); AST/SGOT 20.0 U/L (<34); CALCIUM LEVEL 8.7 MG/DL (8.5-10.1); CARBON DIOXIDE LEVEL 24.0 MMOL/L (20-31); CHLORIDE LEVEL 106.0 MMOL/L (98-107); CREATININE FOR GFR 1.07 MG/DL (0.55-1.30); GLOMERULAR FILTRATION RATE 61.3 (>51); MAGNESIUM LEVEL 2.0 MG/DL (1.8-2.4); POTASSIUM SERUM 4.0 MMOL/L (3.5-5.1); SODIUM LEVEL 141.0 MMOL/L (136-145)
[2025-09-15 06:58] LABS: PLATELET COUNT, AUTOMATED 261 10^3/uL (150-450)
[2025-09-15] MEDS: buPROPion **SR** 150 MG TABLET PO SCH (08:40)
[2025-09-15] MEDS: ROSUVASTATIN 10 MG TAB PO SCH (08:40)
[2025-09-15] MEDS: ASPIRIN 81 MG ENTERIC TABLET PO SCH (08:40)
[2025-09-15 12:00] VITALS: BP 139/82; TEMP 99.3; O2SAT 99
[2025-09-15] MEDS: HALOPERIDOL LACTATE 5 MG/ML VIAL IV PRN (13:45)
[2025-09-15] MEDS: ENOXAPARIN 40 MG/0.4 ML SYRINGE (J1650 PER 10MG) SC SCH (14:00)
[2025-09-15 14:35] LABS: ESTIMATED AVERAGE GLUCOSE 94.0 MG/DL (60-110)
[2025-09-15] MEDS: amLODIPine 5 MG TAB PO SCH (16:15)
[2025-09-15 16:16] VITALS: BP 129/72
[2025-09-15 19:56] VITALS: BP 129/86; TEMP 98; O2SAT 98
[2025-09-16 05:35] VITALS: BP 132/76; TEMP 97.9; O2SAT 97
[2025-09-16 06:28] LABS: PLATELET COUNT, AUTOMATED 250 10^3/uL (150-450)
[2025-09-16 06:55] LABS: ALT/SGPT 22.0 U/L (7.0-40); AST/SGOT 29.0 U/L (<34); CALCIUM LEVEL 8.7 MG/DL (8.5-10.1); CARBON DIOXIDE LEVEL 20.0 MMOL/L (20-31); CHLORIDE LEVEL 107.0 MMOL/L (98-107); CREATININE FOR GFR 1.05 MG/DL (0.55-1.30); GLOMERULAR FILTRATION RATE 62.8 (>51); POTASSIUM SERUM 4.1 MMOL/L (3.5-5.1); SODIUM LEVEL 141.0 MMOL/L (136-145)
[2025-09-16 12:00] VITALS: BP 147/76; TEMP 98.9; O2SAT 100
[2025-09-16 20:00] VITALS: BP 159/97; TEMP 97.7; O2SAT 98
[2025-09-16 21:38] VITALS: BP 159/97
[2025-09-17] MEDS: RAMELTEON 8 MG TAB PO PRN (01:07)
[2025-09-17] MEDS ORDERED: ONDA-282 PO (09:03)
== END 2025-09-17 09:43 | disposition home or self-care (01) ==
LOC: M ED 16:12 → M ED INP 16:13 → M MS4PR 21:02
PROVIDERS: ADMIT Internal Medicine; ATTEND Internal Medicine
DX: N17.9 Acute kidney failure, unspecified (principal); R41.82 Altered mental status, unspecified; R11.2 Nausea with vomiting, unspecified; R63.8 Other symptoms and signs concerning food and fluid intake; F12.90 Cannabis use, unspecified, uncomplicated; F41.9 Anxiety disorder, unspecified; F32.A Depression, unspecified; R79.89 Other specified abnormal findings of blood chemistry; R53.1 Weakness; R41.3 Other amnesia; E03.9 Hypothyroidism, unspecified; I10 Essential (primary) hypertension; S62.521A Displaced fracture of distal phalanx of right thumb, initial encounter for closed fracture; S62.511A Displaced fracture of proximal phalanx of right thumb, initial encounter for closed fracture; W54.0XXA Bitten by dog, initial encounter; M79.9 Soft tissue disorder, unspecified; Z98.51 Tubal ligation status; Z87.891 Personal history of nicotine dependence; Z79.899 Other long term (current) drug therapy; Z79.890 Hormone replacement therapy; Z79.82 Long term (current) use of aspirin
CPT/HCPCS: 36415; 70450; 73130; 74018; 80047; 80048; 80053; 80076; 80143; 80307; 82077; 82140; 82803; 83036; 83735; 84145; 84443; 85025; 85027; 85652; 86140; 87040; 93005; 93041; 94760; 96361; 96365; 96375; 96376; 99285; J0134; J1630; J2405; S0106

== ENCOUNTER → 2025-09-23 | Outpatient (CLI) | payer BC ==
[~2025-09-23] MED LIST changes: +ALEV220T22 PO; +ONDA-282 PO
== END ==
LOC: M SOG 07:33
PROVIDERS: ATTEND Physician Assistant
DX: M79.641 Pain in right hand (principal)